=== PATIENT | female | born 1945 | race Hispanic/Latino ===

== ENCOUNTER 2020-03-20 11:21 | Inpatient (IN) | payer MEDICARE, OTHER ==
[~2020-03-20] VITALS: Ht 167.6 cm; Wt 69.4 kg
[2020-03-20] MEDS: HYDROCODONE/APAP 10MG-325MG TAB PO ONE ×2 (12:30→15:21)
[2020-03-20] MEDS ORDERED: PIOGLITAZONE HC30 MG PO (12:34)
[2020-03-20] MEDS ORDERED: VALSARTAN160 MG PO (12:34)
[2020-03-20] MEDS ORDERED: FUROSEMIDE20 MG PO (12:34)
[2020-03-20] MEDS ORDERED: ALENDRONATE SOD70 MG PO (12:34)
[2020-03-20] MEDS ORDERED: GABAPENTIN300 MG PO (12:34)
[2020-03-20] MEDS ORDERED: JANUVIA100 MG PO (12:34)
[2020-03-20] MEDS ORDERED: ROSUVASTATIN CA40 MG PO (12:34)
[2020-03-20 13:59] LABS: BASOPHILS % 0.3 % (0.0-1.0); HEMATOCRIT 34.1 % (34.2-44.1); HEMOGLOBIN 10.8 g/dL (12.0-16.0); LYMPHOCYTES # (AUTO) 0.6 (1.0-3.2); LYMPHOCYTES % 14.2 % (18.0-39.1); MEAN CORPUSCULAR HEMOGLOBIN 29.6 pg (28-32); MEAN CORPUSCULAR HGB CONC 31.7 g/dL (31-35); MEAN CORPUSCULAR VOLUME 93.4 fL (81-99); MONOCYTES # (AUTO) 0.3 (0.2-0.8); MONOCYTES % 8.6 % (4.4-11.3); NEUTROPHILS % 76.6 % (38.7-80.0); PLATELET COUNT 164 x10e3/uL (140-360); RED BLOOD COUNT 3.65 x10e6/uL (3.6-5.1)
[2020-03-20] MEDS ORDERED: ASPIRIN 81 MG CHEW TAB PO ONE (14:00)
[2020-03-20 14:17] LABS: CREATINE KINASE MB 1.2 ng/mL (0-5.0)
[2020-03-20 14:38] LABS: ALBUMIN 3.5 g/dL (3.5-5.0); ALBUMIN/GLOBULIN RATIO 0.9 (0.8-2.0); ANION GAP 14.4 mmol/L (8-16); CREATININE, SERUM 1.8 mg/dL (0.57-1.11); POTASSIUM 5.4 mmol/L (3.5-5.1)
[2020-03-20 17:00] VITALS: BP 145/71
[2020-03-20 20:00] VITALS: BP 105/49
[2020-03-21] VITALS (7 sets, daily range): BP systolic 114–142; BP diastolic 49–55
[2020-03-21] MEDS ORDERED: DEXAMETHASONE SOD PHOS INJ 4 MG/ML VIAL IV STA (01:44)
[2020-03-21] MEDS: SODIUM CHLORIDE 0.9% 1000ML 1,000 ML IV SCH ×3 (02:59→22:45)
[2020-03-21 03:48] LABS: CALCIUM 9.4 mg/dL (8.4-10.2); CREATININE, SERUM 1.77 mg/dL (0.57-1.11)
[2020-03-21 06:33] LABS: HEMATOCRIT 32.4 % (34.2-44.1); HEMOGLOBIN 10.2 g/dL (12.0-16.0); LYMPHOCYTES # (AUTO) 0.4 (1.0-3.2); LYMPHOCYTES % 11.4 % (18.0-39.1); MEAN CORPUSCULAR HGB CONC 31.5 g/dL (31-35); MEAN CORPUSCULAR VOLUME 95.3 fL (81-99); MONOCYTES # (AUTO) 0.1 (0.2-0.8); MONOCYTES % 3.5 % (4.4-11.3); NEUTROPHILS # (AUTO) 3.1 (2.1-6.9); NEUTROPHILS % 84.8 % (38.7-80.0); PLATELET COUNT 144 x10e3/uL (140-360); RED CELL DISTRIBUTION WIDTH 13.7 % (11.7-14.4)
[2020-03-21 06:56] LABS: ALBUMIN/GLOBULIN RATIO 0.8 (0.8-2.0); ANION GAP 14.2 mmol/L (8-16); CALCIUM 9.4 mg/dL (8.4-10.2); CREATININE, SERUM 1.71 mg/dL (0.57-1.11); POTASSIUM 5.2 mmol/L (3.5-5.1)
[2020-03-21 07:13] LABS: CREATINE KINASE MB 0.8 ng/mL (0-5.0)
[2020-03-21] MEDS ORDERED: DEXTROSE 50% SYRINGE 50 ML IV PRN (07:30)
[2020-03-21] MEDS ORDERED: VALSARTAN 160 MG TAB PO SCH (09:00)
[2020-03-21] MEDS: GABAPENTIN 300 MG CAP PO SCH ×3 (09:37→21:16)
[2020-03-21] MEDS ORDERED: DEXAMETHASONE SOD PHOS 10 MG/1 ML VIAL IV SCH (11:30)
[2020-03-21] MEDS: INSULIN LISPRO 100 UNIT/1 ML 3ML VIAL SQ SCH ×4 (11:58→21:00)
[2020-03-21] MEDS ORDERED: REMDESIVIR 200MG/NS 100ML 200 MG in SODIUM CHLORIDE 0.9% 100 ML 100 ML IV ONE (12:00)
[2020-03-21] MEDS: CEFTRIAXONE SOD 2 GM/NS 100 ML 100 ML IV SCH (12:11)
[2020-03-21] MEDS ORDERED: SODIUM CHLORIDE 0.9% 250ML 0 ML ONE (12:41)
[2020-03-21 12:54] LABS: CREATINE KINASE MB 0.8 ng/mL (0-5.0)
[2020-03-21] MEDS: AZITHROMYCIN 500MG/NS 250 ML 250 ML IV SCH (18:36)
[2020-03-21] MEDS: ENOXAPARIN SOD INJ 40 MG/0.4 ML SYR SC SCH (18:36)
[2020-03-21] MEDS ORDERED: NON-FORMULARY MEDICATION (Rosuvastatin Calcium 40 MG) PO SCH (21:00)
[2020-03-21] MEDS: CRESTOR 10MG PO SCH (21:16)
[2020-03-22] VITALS: BP 107/47
[2020-03-22] MEDS: SODIUM CHLORIDE 0.9% 1000ML 1,000 ML IV SCH ×4 (02:37→13:26)
[2020-03-22 04:00] VITALS: BP 104/43
[2020-03-22] MEDS: DEXAMETHASONE SOD PHOS 10 MG/1 ML VIAL IV SCH (05:28)
[2020-03-22 06:51] LABS: BASOPHILS % 0.3 % (0.0-1.0); EOSINOPHILS % 0.6 % (0.0-6.0); HEMATOCRIT 30.6 % (34.2-44.1); HEMOGLOBIN 9.5 g/dL (12.0-16.0); LYMPHOCYTES # (AUTO) 1.2 (1.0-3.2); LYMPHOCYTES % 34.4 % (18.0-39.1); MEAN CORPUSCULAR VOLUME 96.5 fL (81-99); MONOCYTES # (AUTO) 0.3 (0.2-0.8); MONOCYTES % 9.8 % (4.4-11.3); NEUTROPHILS # (AUTO) 1.9 (2.1-6.9); NEUTROPHILS % 54.6 % (38.7-80.0); PLATELET COUNT 156 x10e3/uL (140-360); RED BLOOD COUNT 3.17 x10e6/uL (3.6-5.1); RED CELL DISTRIBUTION WIDTH 13.8 % (11.7-14.4)
[2020-03-22 07:12] LABS: ALBUMIN 2.8 g/dL (3.5-5.0); ALBUMIN/GLOBULIN RATIO 0.9 (0.8-2.0); ANION GAP 10.9 mmol/L (8-16); CALCIUM 9.1 mg/dL (8.4-10.2); CREATININE, SERUM 1.55 mg/dL (0.57-1.11); POTASSIUM 4.9 mmol/L (3.5-5.1)
[2020-03-22] MEDS: INSULIN LISPRO 100 UNIT/1 ML 3ML VIAL SQ SCH ×4 (07:30→21:16)
[2020-03-22 08:17] VITALS: BP 116/57
[2020-03-22] MEDS: CEFTRIAXONE SOD 2 GM/NS 100 ML 100 ML IV SCH (08:54)
[2020-03-22] MEDS: ZINC SULFATE 220 MG CAP PO SCH (08:54)
[2020-03-22] MEDS: GABAPENTIN 300 MG CAP PO SCH ×3 (08:54→21:11)
[2020-03-22 12:19] VITALS: BP 130/56
[2020-03-22] MEDS: REMDESIVIR 100MG/NS 100ML 100 MG in SODIUM CHLORIDE 0.9% 100 ML 100 ML IV SCH (13:26)
[2020-03-22 16:15] VITALS: BP 124/51
[2020-03-22] MEDS: ENOXAPARIN SOD INJ 40 MG/0.4 ML SYR SC SCH (17:34)
[2020-03-22] MEDS: AZITHROMYCIN 500MG/NS 250 ML 250 ML IV SCH (17:34)
[2020-03-22 20:00] VITALS: BP 135/79
[2020-03-22] MEDS: CRESTOR 10MG PO SCH (21:11)
[2020-03-22] MEDS: ZOLPIDEM TARTRATE 5 MG TAB PO PRN (21:20)
[2020-03-23] VITALS (7 sets, daily range): BP systolic 97–147; BP diastolic 49–68
[2020-03-23] MEDS: SODIUM CHLORIDE 0.9% 1000ML 1,000 ML IV SCH ×4 (03:55→23:41)
[2020-03-23] MEDS: DEXAMETHASONE SOD PHOS 10 MG/1 ML VIAL IV SCH (06:04)
[2020-03-23] MEDS: INSULIN LISPRO 100 UNIT/1 ML 3ML VIAL SQ SCH ×4 (07:30→21:10)
[2020-03-23] MEDS: ZINC SULFATE 220 MG CAP PO SCH (09:47)
[2020-03-23] MEDS: GABAPENTIN 300 MG CAP PO SCH ×3 (09:47→21:10)
[2020-03-23] MEDS: CEFTRIAXONE SOD 2 GM/NS 100 ML 100 ML IV SCH ×2 (14:25→15:28)
[2020-03-23] MEDS: REMDESIVIR 100MG/NS 100ML 100 MG in SODIUM CHLORIDE 0.9% 100 ML 100 ML IV SCH (14:27)
[2020-03-23] MEDS: AZITHROMYCIN 500MG/NS 250 ML 250 ML IV SCH (17:22)
[2020-03-23] MEDS: ENOXAPARIN SOD INJ 40 MG/0.4 ML SYR SC SCH (17:22)
[2020-03-23] MEDS: ZOLPIDEM TARTRATE 5 MG TAB PO PRN (21:10)
[2020-03-23] MEDS: CRESTOR 10MG PO SCH (21:10)
[2020-03-24] VITALS (8 sets, daily range): BP systolic 118–177; BP diastolic 41–76
[2020-03-24 05:31] LABS: BASOPHILS % 0.3 % (0.0-1.0); EOSINOPHILS % 0.6 % (0.0-6.0); HEMATOCRIT 28.8 % (34.2-44.1); LYMPHOCYTES # (AUTO) 1.2 (1.0-3.2); LYMPHOCYTES % 35.9 % (18.0-39.1); MEAN CORPUSCULAR HEMOGLOBIN 29.8 pg (28-32); MEAN CORPUSCULAR HGB CONC 31.3 g/dL (31-35); MEAN CORPUSCULAR VOLUME 95.4 fL (81-99); MONOCYTES # (AUTO) 0.4 (0.2-0.8); MONOCYTES % 10.4 % (4.4-11.3); NEUTROPHILS # (AUTO) 1.8 (2.1-6.9); NEUTROPHILS % 52.5 % (38.7-80.0); PLATELET COUNT 191 x10e3/uL (140-360); RED BLOOD COUNT 3.02 x10e6/uL (3.6-5.1); RED CELL DISTRIBUTION WIDTH 13.5 % (11.7-14.4)
[2020-03-24] MEDS: DEXAMETHASONE SOD PHOS 10 MG/1 ML VIAL IV SCH (05:32)
[2020-03-24] MEDS: SODIUM CHLORIDE 0.9% 1000ML 1,000 ML IV SCH ×3 (05:51→21:08)
[2020-03-24 05:56] LABS: ANION GAP 11.7 mmol/L (8-16); CREATININE, SERUM 1.02 mg/dL (0.57-1.11); POTASSIUM 4.7 mmol/L (3.5-5.1)
[2020-03-24] MEDS: INSULIN LISPRO 100 UNIT/1 ML 3ML VIAL SQ SCH ×4 (07:30→21:00)
[2020-03-24] MEDS: ZINC SULFATE 220 MG CAP PO SCH (09:56)
[2020-03-24] MEDS: GABAPENTIN 300 MG CAP PO SCH ×3 (09:56→21:00)
[2020-03-24] MEDS: CEFTRIAXONE SOD 2 GM/NS 100 ML 100 ML IV SCH (12:06)
[2020-03-24] MEDS: REMDESIVIR 100MG/NS 100ML 100 MG in SODIUM CHLORIDE 0.9% 100 ML 100 ML IV SCH (14:12)
[2020-03-24] MEDS: ENOXAPARIN SOD INJ 40 MG/0.4 ML SYR SC SCH (16:42)
[2020-03-24] MEDS: AZITHROMYCIN 500MG/NS 250 ML 250 ML IV SCH (16:42)
[2020-03-24] MEDS: CRESTOR 10MG PO SCH (21:00)
[2020-03-25] VITALS: BP 152/72
[2020-03-25 04:00] VITALS: BP 132/52
[2020-03-25] MEDS: DEXAMETHASONE SOD PHOS 10 MG/1 ML VIAL IV SCH (05:20)
[2020-03-25] MEDS: SODIUM CHLORIDE 0.9% 1000ML 1,000 ML IV SCH (05:21)
[2020-03-25] MEDS: INSULIN LISPRO 100 UNIT/1 ML 3ML VIAL SQ SCH ×2 (07:30→12:11)
[2020-03-25] MEDS ORDERED: GUAIFENESIN/CODEINE 10 ML CUP PO PRN (08:00)
[2020-03-25] MEDS ORDERED: BENZONATATE 100 MG CAP PO PRN (08:00)
[2020-03-25 09:00] VITALS: BP 132/52
[2020-03-25] MEDS: ZINC SULFATE 220 MG CAP PO SCH (09:06)
[2020-03-25] MEDS: GABAPENTIN 300 MG CAP PO SCH (09:06)
[2020-03-25 09:26] VITALS: BP 148/61
[2020-03-25] MEDS: CEFTRIAXONE SOD 2 GM/NS 100 ML 100 ML IV SCH (12:10)
[2020-03-25] MEDS: REMDESIVIR 100MG/NS 100ML 100 MG in SODIUM CHLORIDE 0.9% 100 ML 100 ML IV SCH (13:18)
[2020-03-25 13:20] VITALS: BP 153/69
== END 2020-03-25 14:25 | disposition home or self-care (01) | DRG 177 ==
LOC: ER 11:55 → ERHOLD 15:15 → MED/SURG 16:28 → MED/SURG3 03-21 00:50 → IMCU 03-23 05:32
PROVIDERS: ADMIT Internal Medicine; ATTEND Internal Medicine
PROC: XW033E5 Introduction of Remdesivir Anti-infective into Peripheral Vein, Percutaneous Approach, New Technology Group 5 (ICD-10-PCS; principal; 2020-03-21)
PROC: 3E0333Z Introduction of Anti-inflammatory into Peripheral Vein, Percutaneous Approach (ICD-10-PCS; 2020-03-21)
DX: U07.1 COVID-19 (principal); J12.82 Pneumonia due to coronavirus disease 2019; J96.91 Respiratory failure, unspecified with hypoxia; N17.9 Acute kidney failure, unspecified; E11.22 Type 2 diabetes mellitus with diabetic chronic kidney disease; N18.30 Chronic kidney disease, stage 3 unspecified; I12.9 Hypertensive chronic kidney disease with stage 1 through stage 4 chronic kidney disease, or unspecified chronic kidney disease; Z88.8 Allergy status to other drugs, medicaments and biological substances; S83.92XA Sprain of unspecified site of left knee, initial encounter; R55 Syncope and collapse; D72.819 Decreased white blood cell count, unspecified; D64.9 Anemia, unspecified; E78.5 Hyperlipidemia, unspecified; E78.00 Pure hypercholesterolemia, unspecified; Z91.81 History of falling; M17.11 Unilateral primary osteoarthritis, right knee; M81.0 Age-related osteoporosis without current pathological fracture; H91.90 Unspecified hearing loss, unspecified ear
CPT/HCPCS: 36415; 70450; 71045; 72110; 80048; 80053; 82550; 82553; 82948; 84484; 85025; 93005; 93306; 96361; 99284; J0456; J0696; J1100; J1650; J7030; J7050; U0002